=== PATIENT | female | born 1990 | race Caucasian/White ===

== ENCOUNTER 2020-05-06 19:34 | Emergency (ER) | payer OTHER ==
[2020-05-06 19:46] VITALS: BP 118/84; PULSE 70; TEMP 98.5; BMI 23.8
[2020-05-06 21:06] LABS: BASO % 0.2 % (0-2.0); EOS % 1.4 % (0-4.5); HEMATOCRIT 42.4 % (32.4-45.2); HEMOGLOBIN 14.3 GM/dL (10.7-15.3); LYMPH % 34.6 % (8-40); MCH 30.2 pg (25.7-33.7); MCHC 33.7 g/dl (32.0-36.0); MEAN CELL VOLUME 89.5 fl (80-96); MEAN PLT VOLUME 8.3 fl (7.5-11.1); MONO % 3.8 % (3.8-10.2); RBC 4.74 M/mm3 (3.60-5.2); RDW 12.9 % (11.6-15.6); WHITE BLOOD COUNT 8.7 K/mm3 (4.0-10.0)
[2020-05-06 21:23] LABS: EPI CELLS 35 /uL (0-25.1); HYALINE CASTS 0 /uL (0-3.1); URINE APPEARANCE CLEAR; URINE BACTERIA 1067 /uL (0-1359); URINE BILIRUBIN NEGATIVE (NEGATIVE); URINE COLOR YELLOW; URINE GLUCOSE (UA) NEGATIVE (NEGATIVE); URINE KETONE NEGATIVE (NEGATIVE); URINE LEUK ESTERASE 1+ (NEGATIVE); URINE NITRITE NEGATIVE (NEGATIVE); URINE PROTEIN NEGATIVE (NEGATIVE); URINE RBC 7 /uL (0-23.9); URINE UROBILINOGEN 0.2 mg/dL (0.2-1.0); URINE WBC 27 /uL (0-25.8)
[2020-05-06 21:25] LABS: POTASSIUM 3.9 mmol/L (3.5-5.1)
[2020-05-06 21:27] LABS: CALCIUM 9.3 mg/dL (8.5-10.1)
[2020-05-06 21:28] LABS: ALBUMIN 4.2 g/dl (3.4-5.0); BLOOD UREA NITROGEN 15.7 mg/dL (7-18)
[2020-05-06 21:31] LABS: CREATININE 0.8 mg/dL (0.55-1.3)
[2020-05-06 21:32] LABS: BILIRUBIN,TOTAL 0.3 mg/dL (0.2-1)
[2020-05-06 21:33] LABS: TOT PROT 7.8 g/dl (6.4-8.2)
[2020-05-06] MEDS ORDERED: CEPHALEXIN MONOHYDRATE 500 MG CAPSULE (UD) PO ONE (21:35)
[2020-05-06 21:41] LABS: PLATELET COUNT 317 K/MM3 (134-434)
[2020-05-06 21:42] LABS: PLATELET ESTIMATE ADEQUATE
[2020-05-06] MEDS ORDERED: CEPHALEXIN MONOHYDRATE 500 MG CAPSULE (UD) ONE (21:55)
== END 2020-05-06 23:14 | disposition home or self-care (01) ==
LOC: JER 19:34
DX: O20.0 Threatened abortion (principal); O23.41 Unspecified infection of urinary tract in pregnancy, first trimester; Z3A.01 Less than 8 weeks gestation of pregnancy
CPT/HCPCS: 36415; 76817-TC; 80053; 81003; 84702; 85025; 86850; 86900; 86901; 87086; 99284-25

== ENCOUNTER 2020-05-08 12:58 | Emergency (ER) | payer OTHER ==
[2020-05-08 13:03] VITALS: BP 133/88; PULSE 69; TEMP 97.8; BMI 23.8
== END 2020-05-08 16:21 | disposition home or self-care (01) ==
LOC: JER 12:58
DX: O20.0 Threatened abortion (principal)
CPT/HCPCS: 36415; 76817-TC; 84702; 99284-25